=== PATIENT | male | born 1960 | race Caucasian/White ===

== ENCOUNTER 2019-09-17 10:30 | Day surgery (SDC) | payer BC ==
[2019-09-15 11:47] VITALS: BMI 26.1
[2019-09-17] MEDS ORDERED: Sodium Chloride 0.9% 100 ML ONE (11:58)
[2019-09-17] MEDS ORDERED: cefOXitin 2 GM VIAL ONE (11:58)
[2019-09-17] MEDS ORDERED: Midazolam HCl 2 mg/2 ml Vial ONE (12:06)
[2019-09-17] MEDS ORDERED: Fentanyl 100 MCG/2 ML VIAL ONE ×3 (12:13→14:13)
[2019-09-17] MEDS ORDERED: Bupivacaine HCl 0.5%/Epinephrine 1:200,000/PF 30 ml Vial ONE (12:22)
[2019-09-17] MEDS ORDERED: Bacitracin Zinc Ointment 30 gm TUBE ONE (12:22)
[2019-09-17] MEDS ORDERED: Lidocaine 2% w/Epinephrine 1:200K 20 ML VIAL ONE (12:22)
[2019-09-17] MEDS ORDERED: Lidocaine 2% PF 5 ML VIAL ONE (12:23)
--- NOTE | 2019-09-18 09:43 | OP ---
DATE OF PROCEDURE: 09/17/2019 PREOPERATIVE DIAGNOSIS: Chronic anal fissure with sentinel pile and then immediately preoperative was grade 3 bleeding hemorrhoids. PROCEDURES PERFORMED: 1. Exam under anesthesia. 2. Procedure for prolapsed hemorrhoids. 3. Excision of cyst anterior sentinel pile. DESCRIPTION OF PROCEDURE: After informed consent was obtained, the patient was taken to the operating room. He was started off with general mask anesthesia and placed in lithotomy position. Upon placing him in lithotomy position, it became evident because he had prolapse of very large dilated internal hemorrhoids with an ulceration, but this was also a problem besides his chronic anterior anal fissure, so I went out and talked to his and told her that the sphincterotomy alone is not going to be the solution that he really needs to have these hemorrhoids dealt with, so she gave permission. We then converted to general endotracheal anesthesia and placed him in the prone ghazala-knife position. Buttock cheeks were spread apart with tape. The local anesthesia with 0.5% Marcaine was infiltrated as a 4-quadrant anal block. Anal introducer was inserted and sutured in place with interrupted 0 silk suture. Then, the pursestring guide was inserted and a pursestring of 2-0 Prolene was placed circumferentially in the rectal mucosa. The stapler was opened maximally, the anvil advanced deep to the pursestring. The sutures were then brought through the channels on the stapler with the kelsea hook. It was tied as a knot, held closed on the shaft as the stapler was closed. The stapler was then fired and held for 30 seconds, then released for 30 seconds, then opened partially and removed. The specimen was inspected. There were no muscle fibers. The staple line was inspected. There was some bleeding anteriorly. This was controlled with interrupted 3-0 chromic suture. The area was irrigated. Hemostasis was assured. A Gel-Foam impregnated with bacitracin was inserted within the anal canal. The retractor was removed. The anterior sentinel pile was excised with electrocautery. Hemostasis was achieved with electrocautery. Sterile bandage applied. The patient tolerated the procedure well, transferred to Recovery in good condition. Sponge and needle count verified correct x2. Job ID: [id number]
== END 2019-09-17 18:15 | disposition home or self-care (01) ==
LOC: SDC 10:30
PROVIDERS: ATTEND Surgery
PROC: 0DBQXZZ Excision of Anus, External Approach (ICD-10-PCS; principal; 2019-09-17)
DX: K60.1 Chronic anal fissure (principal); K64.2 Third degree hemorrhoids; Z79.899 Other long term (current) drug therapy
CPT/HCPCS: 88304; 88305; J0670; J0694; J2001; J2250; J3010; J3490